=== PATIENT | male | born 1975 | race Caucasian/White ===

== ENCOUNTER 2023-03-25 07:16 | Emergency (ER) | payer BC ==
[2023-03-25 07:34] VITALS: BP 135/86; PULSE 83; RESP 17; TEMP 97.9; BMI 27.0
[2023-03-25] MEDS ORDERED: ACETAMINOPHEN 1000 MG/100 ML BAG IVPB ONE (08:13)
[2023-03-25] MEDS ORDERED: ACETAMINOPHEN INJECTION 100 ML IVPB ONE ×2 (08:51)
[2023-03-25 09:14] LABS: HEMATOCRIT 44.4 % (35.4-49); HEMOGLOBIN 14.9 GM/dL (11.7-16.9); MCH 28.5 pg (25.7-33.7); MCHC 33.5 g/dl (32.0-35.9); MEAN CELL VOLUME 85.1 fl (80-96); MEAN PLT VOLUME 7.5 fl (7.5-11.1); PLATELET COUNT 264 10^3/uL (134-434); RBC 5.22 M/mm3 (4.00-5.60); RDW 14.2 % (11.9-15.9); WHITE BLOOD COUNT 12.6 K/mm3 (4.0-10.0)
[2023-03-25 09:41] LABS: POTASSIUM 4.2 mmol/L (3.5-5.1)
[2023-03-25 09:43] LABS: ALBUMIN 3.5 g/dl (3.4-5.0); CALCIUM 8.7 mg/dL (8.5-10.1)
[2023-03-25 09:44] LABS: BLOOD UREA NITROGEN 17.2 mg/dL (7-18)
[2023-03-25 09:48] LABS: BILIRUBIN,TOTAL 0.3 mg/dL (0.2-1); TOT PROT 6.1 g/dl (6.4-8.2)
[2023-03-25 11:50] LABS: ANISOCYTOSIS 0; HELMET CELLS 0; HOWELL-JOLLY BODIES 0; MACROCYTOSIS 0; OVALOCYTE 0; ROULEAU 0; SICKELED CELLS 0; TARGET CELLS 0; TEAR DROP CELLS 0; TOXIC GRANULATION 0
== END 2023-03-25 13:10 | disposition home or self-care (01) ==
LOC: JER 07:16
PROC: 3E033NZ Introduction of Analgesics, Hypnotics, Sedatives into Peripheral Vein, Percutaneous Approach (ICD-10-PCS; principal; 2023-03-25)
DX: H46.9 Unspecified optic neuritis (principal); R51.9 Headache, unspecified; J32.9 Chronic sinusitis, unspecified; H53.2 Diplopia; R50.9 Fever, unspecified; H53.8 Other visual disturbances
CPT/HCPCS: 36415; 70481-TC; 70487-TC; 80053; 85025; 99285-25; Q9967